=== PATIENT | female | born 1995 | race African-American/Black ===

== ENCOUNTER 2024-11-18 12:03 | Emergency (ER) | payer SELFPAY ==
[~2024-11-18] VITALS: Ht 165.1 cm; Wt 158.8 kg
[2024-11-18 12:13] VITALS: BP 134/86; PULSE 90; RESP 16; TEMP 98.7; O2SAT 100
[2024-11-18] MEDS ORDERED: TRIMO EACHEYE (13:06)
== END 2024-11-18 13:43 | disposition home or self-care (01) ==
LOC: ER 12:33
DX: H10.9 Unspecified conjunctivitis (principal)
CPT/HCPCS: 99283